=== PATIENT | female | born 1965 | race Caucasian/White ===

== ENCOUNTER 2018-12-03 01:32 | Inpatient (IN) | payer BC ==
[2018-12-03 02:35] LABS: ABSOLUTE LYMPHOCYTES (AUTO) 1.5 10^3/uL (0.5-4.7); ABSOLUTE MONOCYTES (AUTO) 0.9 10^3/uL (0.1-1.4); ABSOLUTE NEUT (AUTO) 8.2 10^3/uL (1.7-8.2); BASOPHILS % (AUTO) 0.4 % (0-2); EOSINOPHILS % (AUTO) 0.2 % (0-6); HEMATOCRIT 46.8 % (36.0-47.0); HEMOGLOBIN 15.9 g/dL (12.0-15.5); LYMPHOCYTES % (AUTO) 13.8 % (13-45); MEAN CORPUSCULAR HEMOGLOBIN 31.5 pg (27.0-33.4); MEAN CORPUSCULAR VOLUME 93 fl (80-97); MONOCYTES % (AUTO) 8.7 % (3-13); PLATELET COUNT 225 10^3/uL (150-450); RED BLOOD COUNT 5.06 10^6/uL (3.72-5.28); SEGMENTED NEUTROPHILS % (AUTO) 76.9 % (42-78); TOTAL CELLS COUNTED % (AUTO) 100 %; WHITE BLOOD COUNT 10.7 10^3/uL (4.0-10.5)
[2018-12-03 02:49] LABS: ALBUMIN 4.4 g/dL (3.5-5.0); ALKALINE PHOSPHATASE 110 U/L (38-126); ANION GAP 9 (5-19); ASPARTATE AMINO TRANSFERASE 18 U/L (14-36); BILIRUBIN,DIRECT 0.1 mg/dL (0.0-0.4); BILIRUBIN,TOTAL 0.6 mg/dL (0.2-1.3); BLOOD UREA NITROGEN 10 mg/dL (7-20); CALCIUM 10.2 mg/dL (8.4-10.2); CARBON DIOXIDE 27 mmol/L (22-30); CHLORIDE 103 mmol/L (98-107); GLUCOSE 135 mg/dL (75-110); POTASSIUM 4.2 mmol/L (3.6-5.0); TOTAL PROTEIN 7.6 g/dL (6.3-8.2)
[2018-12-03] MEDS ORDERED: HYDROMORPHONE HCL INJ/PF 2 MG/ML AMPULE IV ONE ×2 (03:37→06:04)
[2018-12-03] MEDS ORDERED: NORMAL SALINE 1000 ML 1,000 ML IV ONE (03:38)
--- NOTE | 2018-12-03 03:50 | ER Document Report ---
ED General - General Chief Complaint: Lower Abdominal Pain Stated Complaint: ABDOMINAL PAIN Time Seen by Provider: 12/03/18 03:20 Mode of Arrival: Medic Information source: Patient TRAVEL OUTSIDE OF THE [place] IN LAST 30 DAYS: No - HPI Patient complains to provider of: Right lower quadrant abdominal pain Onset: Yesterday - Symptoms started at 1100 hrs. yesterday Onset/Duration: Sudden Quality of pain: Sharp Severity: Severe Context: Patient states she noted onset of abdominal pain and a bandlike distribution in her lower abdomen that came on suddenly around 1100 hrs. yesterday. Patient states she has not had anything to eat since 1100 hrs. yesterday. Patient is complaining of pain that has localized to her right lower quadrant. She is also complaining of worsening of abdominal pain with any type of movement, including moving from a lying position to a sitting or standing position. Patient states that even slight movement of her legs seems to aggravate her abdominal pain. Patient states her nausea is somewhat improved since receiving IV Zofran by rescue in route. Patient states that she is status post tubal ligation and denies the possibility of being . Patient denies fever, chills. Associated symptoms: Nausea, Vomiting Exacerbated by: Movement Relieved by: Remaining still Similar symptoms previously: No Notes: Patient denies prior history of other abdominal surgeries other than tubal ligation. - Related Data Allergies/Adverse Reactions: No Known Allergies Allergy (Verified 12/03/18 02:33) Past Medical History - General Information source: Patient - Social History Smoking Status: Current Every Day Smoker Lives with: Family Family History: Reviewed & Not Pertinent Patient has suicidal ideation: No Patient has homicidal ideation: No Traumatic Medical History: Reports: None Infectious Medical History: Reports: None Surgical Hx: Other Past Surgical History: Reports: Hx Tubal Ligation Review of Systems - Review of Systems Constitutional: No symptoms reported EENT: No symptoms reported Cardiovascular: No symptoms reported Respiratory: No symptoms reported Gastrointestinal: Abdominal pain, Nausea, Vomiting Genitourinary: No symptoms reported Female Genitourinary: No symptoms reported Musculoskeletal: No symptoms reported Skin: No symptoms reported Hematologic/Lymphatic: No symptoms reported Neurological/Psychological: No symptoms reported Physical Exam - Vital signs Vitals: Temp Pulse Resp BP Pulse Ox 98.4 F 96 16 138/83 H 99 12/03/18 01:43 12/03/18 01:43 12/03/18 01:43 12/03/18 01:43 12/03/18 01:43 - General General appearance: Other - Patient is awake, appears to be in pain, but not in extremis. In distress: Mild - HEENT Head: Normocephalic, Atraumatic Eyes: Normal Pupils: PERRL - Respiratory Respiratory status: No respiratory distress Chest status: Nontender Breath sounds: Normal Chest palpation: Normal - Cardiovascular Rhythm: Regular Heart sounds: Normal auscultation Murmur: No - Abdominal Distension: No distension Bowel sounds: Hypoactive Tenderness: Spears's sign. No: Rebound Organomegaly: No organomegaly Notes: Patient is tender to palpation in all 4 quadrants. Patient's pain is most significant in her right lower quadrant and very slight palpation of this region elicits a painful response from the patient. Spears sign is positive, positive Rovsing sign, no rebound present. - Extremities General upper extremity: Normal inspection General lower extremity: Normal inspection - Neurological Neuro grossly intact: Yes Cognition: Normal Orientation: AAOx4 [place] Coma Scale Eye Opening: Spontaneous [place] Coma Scale Verbal: Oriented [place] Coma Scale Motor: Obeys Commands [place] Coma Scale Total: 15 - Psychological Associated symptoms: Anxious - Skin Skin Temperature: Warm Skin Moisture: Dry Skin Color: Pale Course - Re-evaluation Re-evalutation: 12/03/18 06:09 Patient has some pain relief with Dilaudid. CT abdomen pelvis significant for acute appendicitis. Findings discussed with at 0550 hours. Requested the patient be given a dose of Cipro and Flagyl IV now. Patient's CT scan results discussed with her. Patient understands diagnosis and necessity for surgical intervention. All questions have been answered. - Vital Signs Vital signs: Temp Pulse Resp BP Pulse Ox 98.4 F 96 16 138/83 H 99 12/03/18 01:43 12/03/18 01:43 12/03/18 01:43 12/03/18 01:43 12/03/18 01:43 - Laboratory Result Diagrams: 12/03/18 02:20 12/03/18 02:20 Laboratory results interpreted by me: 12/03/18 12/03/18 02:20 02:20 WBC 10.7 H Hgb 15.9 H Glucose 135 H - Diagnostic Test Radiology reviewed: Reports reviewed Discharge - Discharge Clinical Impression: Acute appendicitis Condition: Good Disposition: ADMITTED INPATIENT Admitting Provider: dr epps Unit Admitted: Surgical Floor
[2018-12-03] MEDS ORDERED: NEOSTIGMINE METHYLSULFATE 10 MG/10 ML VIAL ONE (05:00)
[2018-12-03] MEDS ORDERED: PHENYLEPHRINE HCL INJ/PF 10 MG/1 ML SDV ONE (05:00)
[2018-12-03] MEDS ORDERED: ONDANSETRON HCL INJ/PF 4 MG/2 ML SDV ONE (05:00)
[2018-12-03] MEDS ORDERED: SUCCINYLCHOLINE CHLORIDE INJ 200 MG/10 ML VIAL ONE (05:00)
[2018-12-03] MEDS ORDERED: GLYCOPYRROLATE 1 MG/5 ML VIAL ONE (05:00)
[2018-12-03] MEDS ORDERED: ROCURONIUM BROMIDE INJ 50 MG/5 ML VIAL IV ONE (05:00)
[2018-12-03] MEDS ORDERED: DEXAMETHASONE SOD PHOSPHATE INJ 4 MG/1 ML VIAL ONE (05:00)
--- NOTE | 2018-12-03 05:32 | RADIOLOGY REPORT (SQ) ---
EXAM DESCRIPTION: CT ABDOMEN PELVIS WITH IV CONTRAST COMPLETED DATE/TME: 12/03/2018 03:39 CLINICAL HISTORY: 53 years Female, right lower quadrant pain, +Spears's sign. CREAT 0.63 Comparison: None. Technique: IV contrast. Coronal and sagittal reformat. This exam was performed according to our departmental dose-optimization program, which includes automated exposure control, adjustment of the mA and/or kV according to patient size and/or use of iterative reconstruction technique. [facility]: Dose Right [facility]: CareDose [facility]: Dose Right [facility]: Teradose 4D [facility]: Thumbtack LIMITATIONS: None Findings: 0.9 cm diameter inflamed fluid-filled appendix with moderate periappendiceal fat inflammation. Atelectasis/scar. Atherosclerotic vascular disease. No ascites. No pneumoperitoneum. No bowel obstruction. No hydronephrosis or hydroureter. No renal/ureteral stone. No gross evidence of gallbladder inflammation, hepatobiliary obstruction, or portal vein defect. No evidence of abdominal aortic aneurysm. No gross evidence of thecal sac/cord or nerve root compression. Inferior thorax, liver, gallbladder, pancreas, spleen, adrenals, renal system, gastrointestinal tract, pelvic organs, lymphatics, vasculature, and musculoskeleton appear otherwise unremarkable. IMPRESSION: Acute appendicitis.
[2018-12-03 06:04] LABS: APPEARANCE,URINE CLEAR; BILIRUBIN,URINE NEGATIVE (NEGATIVE); COLOR,URINE YELLOW; GLUCOSE, URINE NEGATIVE (NEGATIVE); KETONES,URINE NEGATIVE (NEGATIVE); LEUKOCYTE ESTERASE,URINE NEGATIVE (NEGATIVE); NITRITE,URINE NEGATIVE (NEGATIVE); PROTEIN,URINE NEGATIVE (NEGATIVE); URINE SPECIFIC GRAVITY 1.019; UROBILINOGEN,URINE NEGATIVE mg/dL (<2.0)
[2018-12-03] MEDS ORDERED: METRONIDAZOLE RTU 500 MG/NS 100 ML IV ONE (06:06)
--- NOTE | 2018-12-03 06:57 | PDOC H&P ---
History of Present Illness Admission Date/PCP: 12/03/18 06:22 Patient complains of: lower abdominal pain History of Present Illness: BRINDA BENITEZ is a 53 year old female with a 1 day history of dull, nonspecific lower abdominal pain. Began yesterday morning after she awoke from sleeping. It progressed throughout the day, and intensified. It is situated in her right lower quadrant. The pain is now sharp and stabbing. Her pain does not radiate. She rates it 10 out of 10. She reports subjective fevers and chills. She denies melena, hematochezia, hematemesis, diarrhea, constipation. She has experienced nausea, but denies vomiting. Palpation and movement make her pain worse. Narcotic pain medication is the only thing that makes it better. She has never experienced pain like this before. Past Medical History Traumatic Medical History: Reports: None Infectious Medical History: Reports: None Past Surgical History Past Surgical History: Reports: Orthopedic Surgery - knee surgery, Tubal Ligation Social History Lives with: Family Smoking Status: Current Every Day Smoker Family History Family History: Reviewed & Not Pertinent Parental Family History Reviewed: Yes Children Family History Reviewed: Yes Sibling(s) Family History Reviewed.: Yes Medication/Allergy Allergies/Adverse Reactions: No Known Allergies Allergy (Verified 12/03/18 02:33) Review of Systems Constitutional: PRESENT: chills, fever(s). ABSENT: anorexia, fatigue, headache(s), night sweats, weakness Eyes: ABSENT: visual disturbances Ears: ABSENT: hearing changes Nose, Mouth, and Throat: ABSENT: mouth pain, sore throat Cardiovascular: ABSENT: chest pain Respiratory: ABSENT: cough, dyspnea Gastrointestinal: PRESENT: abdominal pain, nausea. ABSENT: bloating, constipation, diarrhea, hematemesis, hematochezia, melena, vomiting Genitourinary: ABSENT: dysuria Musculoskeletal: ABSENT: back pain Integumentary: ABSENT: pruritus, rash Neurological: ABSENT: confusion, convulsions, dizziness Psychiatric: ABSENT: anxiety, depression Endocrine: ABSENT: cold intolerance, heat intolerance Hematologic/Lymphatic: ABSENT: easy bleeding, easy bruising Physical Exam Vital Signs: Temp Pulse Resp BP Pulse Ox 98.4 F 96 16 138/83 H 99 12/03/18 01:43 12/03/18 01:43 12/03/18 01:43 12/03/18 01:43 12/03/18 01:43 Intake & Output 12/01/18 12/02/18 12/03/18 06:59 06:59 06:59 Intake Total 1000 Balance 1000 Weight 75 kg General appearance: PRESENT: cooperative Head exam: PRESENT: atraumatic, normocephalic Eye exam: PRESENT: EOMI, PERRLA. ABSENT: scleral icterus Mouth exam: PRESENT: moist, neck supple Neck exam: ABSENT: meningismus, tenderness, thyromegaly, tracheal deviation Respiratory exam: PRESENT: clear to auscultation miryam, unlabored. ABSENT: chest wall tenderness, tachypnea, wheezes Cardiovascular exam: PRESENT: RRR Pulses: PRESENT: normal radial pulses GI/Abdominal exam: PRESENT: guarding - right lower quadrant, soft, tenderness. ABSENT: distended, firm Rectal exam: PRESENT: deferred Extremities exam: ABSENT: clubbing Musculoskeletal exam: ABSENT: deformity Neurological exam: PRESENT: alert, awake, oriented to person, oriented to place, oriented to time, oriented to situation, CN II-XII grossly intact. ABSENT: motor sensory deficit Psychiatric exam: ABSENT: agitated, anxious, depressed Focused psych exam: ABSENT: delusional Skin exam: ABSENT: cyanosis, erythema, jaundice Results Laboratory Results: 12/03/18 02:20 12/03/18 02:20 12/03/18 12/03/18 12/03/18 02:20 02:20 05:25 WBC 10.7 H RBC 5.06 Hgb 15.9 H Hct 46.8 MCV 93 MCH 31.5 MCHC 34.0 RDW 14.0 Plt Count 225 Seg Neutrophils % 76.9 Sodium 139.1 Potassium 4.2 Chloride 103 Carbon Dioxide 27 Anion Gap 9 BUN 10 Creatinine 0.63 Est GFR ( Amer) > 60 Glucose 135 H Calcium 10.2 Total Bilirubin 0.6 AST 18 Alkaline Phosphatase 110 Total Protein 7.6 Albumin 4.4 Lipase 29.2 Urine Color YELLOW Urine Appearance CLEAR Urine pH 7.0 Ur Specific [place] 1.019 Urine Protein NEGATIVE Urine Glucose (UA) NEGATIVE Urine Ketones NEGATIVE Urine Blood SMALL H Urine Nitrite NEGATIVE Ur Leukocyte Esterase NEGATIVE Urine WBC (Auto) 1 Urine RBC (Auto) 4 Impressions: Abdomen/Pelvis CT 12/03/18 03:39 IMPRESSION: Acute appendicitis. Assessment & Plan - Diagnosis (1) Acute appendicitis Qualifiers: Acute appendicitis type: with localized peritonitis Appendicitis gangrene presence: unspecified whether gangrene present Appendicitis perforation presence: unspecified whether perforation present Appendicitis abscess presence: without abscess Qualified Code(s): K35.30 - Acute appendicitis with localized peritonitis, without perforation or gangrene Is this a current diagnosis for this admission?: Yes - Plan Summary Plan Summary: This is a 53-year-old female with stabbing right lower quadrant pain. She has mild elevation of her white blood cell count. She has a CT scan, that I have reviewed (images and reports). She has thickening of her appendix with periappendiceal stranding. Her history, physical exam, and imaging studies are all consistent with acute appendicitis. I have recommended definitive surgical treatment, in the form of laparoscopic appendectomy. The patient has agreed to this. Risks/benefits discussed, informed consent obtained, and all questions answered.
[2018-12-03] MEDS: KETOROLAC TROMETHAMINE INJ/PF 30 MG/1 ML SDV IV SCH ×3 (07:16→21:35)
[2018-12-03] MEDS ORDERED: CIPROFLOXACIN 400 MG/D5W RTU 400 MG/200 ML RTUPB IV SCH (10:00)
[2018-12-03] MEDS: FAMOTIDINE INJ/PF 20 MG/2 ML SDV IV SCH ×2 (10:00→21:35)
[2018-12-03] MEDS ORDERED: MIDAZOLAM 2 MG/2 ML INJ ONE (10:12)
[2018-12-03] MEDS ORDERED: FENTANYL CITRATE INJ/PF 250 MCG/5 ML AMPULE ONE (10:12)
[2018-12-03] MEDS ORDERED: PROPOFOL INJ 200 MG/20 ML VIAL IV ONE (10:12)
[2018-12-03] MEDS ORDERED: BUPIVACAINE HCL 0.25 % INJ/PF (2.5 MG/1 ML) 30 ML VIAL ONE (10:51)
[2018-12-03] MEDS ORDERED: MORPHINE SULFATE 10 MG/ML INJ IV PRN (11:05)
[2018-12-03] MEDS ORDERED: FENTANYL CITRATE INJ/PF 100 MCG/2 ML AMPUL IV PRN ×3 (11:05)
[2018-12-03] MEDS ORDERED: MEPERIDINE HCL/PF INJ 25 MG/1 ML DISP.SYRIN IV PRN (11:05)
[2018-12-03] MEDS ORDERED: PROMETHAZINE HCL INJ 25 MG/1 ML VIAL IV PRN (11:05)
[2018-12-03] MEDS ORDERED: DIPHENHYDRAMINE HCL 50 MG/ML VIAL IV PRN (11:05)
[2018-12-03] MEDS: MEPERIDINE HCL/PF INJ 25 MG/1 ML DISP.SYRIN ONE ×2 (12:05→12:10)
[2018-12-03] MEDS: METRONIDAZOLE 500 MG/NS RTU 500 MG/100 ML RTUPB IV SCH ×2 (14:00→21:36)
[2018-12-03] MEDS: HYDROCODONE/ACETAMINOPHEN 10-325 MG TABLET PO PRN (21:34)
--- NOTE | 2018-12-03 22:54 | Operative Report ---
Nonrecallable Operative Report DATE OF SURGERY: 12/03/18 PREOPERATIVE DIAGNOSIS: Acute appendicitis POSTOPERATIVE DIAGNOSIS: Acute perforated appendicitis OPERATION: Laparoscopic appendectomy SURGEON: ALEXIS MAIER ANESTHESIA: GA TISSUE REMOVED OR ALTERED: Appendix COMPLICATIONS: None apparent ESTIMATED BLOOD LOSS: 20 cc PROCEDURE: Drains/implants: None. Procedure in detail: After informed consent was obtained, the patient was brought into the operating room and laid in the supine position. The area of the abdomen was prepped and draped in a normal sterile fashion. A supraumbilical incision was created with a 15 blade scalpel. Dissection was carried through the subcutaneous tissue using sharp and blunt dissection. The cicatrix was identified, grasped with a Blair clamp, and retracted upwards. The linea alba fascia was incised sharply, the abdomen was entered sharply. The balloon trocar was inserted, and pneumoperitoneum was achieved. A suprapubic 5 mm trocar was placed, as well as a left lower quadrant 5 mm trocar. This was done under direct laparoscopic visualization. Atraumatic graspers were placed through the 5 mm ports. The cecum was inspected. There was seropurulent fluid surrounding the cecum. The appendix was visualized. The base of the appendix appeared necrotic and perforated. Secondary to this, the mesoappendix was taken down using the harmonic scalpel. The appendix was elevated. The base of the appendix and a portion of the cecum were ligated and divided using the [place] 60 stapler with a blue load. Once this was completed, all the purulent fluid was suctioned from the abdomen. Inspection was then undertaken. No other obvious abnormality could be found throughout the abdomen. The 5 mm trochars were then removed under direct laparoscopic visualization. The supraumbilical trocar was removed, and pneumoperitoneum was relieved. The supraumbilical fascia was closed using 0 Vicryl suture in [id number] fashion. The overlying skin was closed using 4-0 Vicryl Rapide suture in subcuticular fashion. All sponge, instrument, and needle counts were correct x2. Condition: Stable.
[2018-12-03] MEDS: CIPROFLOXACIN 400 MG/D5W RTU 400 MG/200 ML RTUPB IV SCH (22:57)
[2018-12-04] MEDS: KETOROLAC TROMETHAMINE INJ/PF 30 MG/1 ML SDV IV SCH ×3 (05:38→22:29)
[2018-12-04] MEDS: METRONIDAZOLE 500 MG/NS RTU 500 MG/100 ML RTUPB IV SCH ×3 (05:38→22:30)
[2018-12-04] MEDS: DEXTROSE 5%-LACTATED RINGERS 1,000 ML IV PRN ×2 (05:44→18:27)
[2018-12-04] MEDS ORDERED: INFLUENZA QUAD (6MOS+) 2019-20 VAC 0.5 ML SYR IM ONE (08:00)
[2018-12-04 08:37] LABS: ABSOLUTE MONOCYTES (AUTO) 0.4 10^3/uL (0.1-1.4); ABSOLUTE NEUT (AUTO) 7.3 10^3/uL (1.7-8.2); BASOPHILS % (AUTO) 0.5 % (0-2); EOSINOPHILS % (AUTO) 0.5 % (0-6); HEMATOCRIT 35.3 % (36.0-47.0); MEAN CORPUSCULAR HGB CONC 34.6 g/dL (32.0-36.0); MEAN CORPUSCULAR VOLUME 93 fl (80-97); MONOCYTES % (AUTO) 4.6 % (3-13); PLATELET COUNT 143 10^3/uL (150-450); RED BLOOD COUNT 3.82 10^6/uL (3.72-5.28); RED CELL DISTRIBUTION WIDTH 14.1 % (11.5-14.0); SEGMENTED NEUTROPHILS % (AUTO) 83.4 % (42-78); TOTAL CELLS COUNTED % (AUTO) 100 %; WHITE BLOOD COUNT 8.8 10^3/uL (4.0-10.5)
[2018-12-04 08:53] LABS: HEMOGLOBIN 12.2 g/dL (12.0-15.5)
--- NOTE | 2018-12-04 09:18 | PDOC PROGRESS REPORT ---
Subjective Progress Note for:: 12/04/18 Subjective:: feels ok still with some llq pain from incision Reason For Visit: ACUTE APPENDICITIS Physical Exam Vital Signs: Temp Pulse Resp BP Pulse Ox 98.3 F 92 17 119/64 91 L 12/04/18 08:03 12/04/18 08:03 12/04/18 08:03 12/04/18 08:03 12/04/18 08:03 Intake & Output 12/03/18 12/04/18 12/05/18 06:59 06:59 06:59 Intake Total 1000 2380 Output Total 10 Balance 1000 2370 Weight 75 kg 76.5 kg General appearance: PRESENT: no acute distress Head exam: PRESENT: atraumatic Eye exam: PRESENT: EOMI Ear exam: PRESENT: TM's normal bilaterally Mouth exam: PRESENT: moist Neck exam: PRESENT: full ROM Respiratory exam: PRESENT: clear to auscultation miryam Cardiovascular exam: PRESENT: RRR Pulses: PRESENT: normal radial pulses, normal femoral pulses GI/Abdominal exam: PRESENT: soft Rectal exam: PRESENT: deferred Extremities exam: PRESENT: full ROM Musculoskeletal exam: PRESENT: full ROM Neurological exam: PRESENT: alert, awake, oriented to person, oriented to place Psychiatric exam: PRESENT: appropriate affect Skin exam: PRESENT: dry Results Laboratory Results: 12/04/18 08:14 12/03/18 02:20 12/04/18 08:14 WBC 8.8 RBC 3.82 Hgb 12.2 D Hct 35.3 L MCV 93 MCH 32.0 MCHC 34.6 RDW 14.1 H Plt Count 143 L Seg Neutrophils % 83.4 H Impressions: Abdomen/Pelvis CT 12/03/18 03:39 IMPRESSION: Acute appendicitis. Assessment & Plan - Time Time Spent with patient: 25-34 minutes - Plan Summary Plan Summary: pod 1 s/p perforated appendiciits doing ok no flatus as yet started on a full liquid diet will cont to observe home when return of bowel function cont iv abx and full liqluids for now.
[2018-12-04] MEDS: FAMOTIDINE INJ/PF 20 MG/2 ML SDV IV SCH ×2 (10:28→22:28)
[2018-12-04] MEDS: CIPROFLOXACIN 400 MG/D5W RTU 400 MG/200 ML RTUPB IV SCH ×2 (10:28→22:30)
[2018-12-04] MEDS: HYDROCODONE/ACETAMINOPHEN 10-325 MG TABLET PO PRN ×2 (10:35→18:21)
[2018-12-04] MEDS: ONDANSETRON HCL INJ/PF 4 MG/2 ML SDV IV PRN (22:28)
[2018-12-04] MEDS: MORPHINE SULFATE 10 MG/ML INJ IV PRN (22:28)
[2018-12-05] MEDS: HYDROCODONE/ACETAMINOPHEN 10-325 MG TABLET PO PRN ×4 (02:23→20:45)
[2018-12-05] MEDS: MORPHINE SULFATE 10 MG/ML INJ IV PRN ×2 (04:58→20:47)
[2018-12-05] MEDS: METRONIDAZOLE 500 MG/NS RTU 500 MG/100 ML RTUPB IV SCH ×3 (05:49→22:02)
[2018-12-05] MEDS: KETOROLAC TROMETHAMINE INJ/PF 30 MG/1 ML SDV IV SCH ×3 (05:50→22:03)
[2018-12-05] MEDS: DEXTROSE 5%-LACTATED RINGERS 1,000 ML IV PRN ×2 (08:34→13:39)
[2018-12-05] MEDS: FAMOTIDINE INJ/PF 20 MG/2 ML SDV IV SCH ×2 (09:28→22:02)
[2018-12-05] MEDS: CIPROFLOXACIN 400 MG/D5W RTU 400 MG/200 ML RTUPB IV SCH ×2 (09:29→22:02)
--- NOTE | 2018-12-05 19:21 | PDOC PROGRESS REPORT ---
Subjective Progress Note for:: 12/05/18 Subjective:: mild abdominal pains. No N/V No flatus yet Reason For Visit: ACUTE APPENDICITIS, S/P APPENDECTOMY Physical Exam Vital Signs: Temp Pulse Resp BP Pulse Ox 98.1 F 104 H 18 151/82 H 92 12/05/18 16:00 12/05/18 16:00 12/05/18 16:00 12/05/18 16:00 12/05/18 16:00 Intake & Output 12/04/18 12/05/18 12/06/18 06:59 06:59 06:59 Intake Total 2380 3926 2529 Output Total 10 Balance 2370 3926 2529 Weight 76.5 kg 76.5 kg Exam: abdomen is soft with mild diffuse tenderness. Results Laboratory Results: 12/04/18 08:14 12/03/18 02:20 Impressions: Abdomen/Pelvis CT 12/03/18 03:39 IMPRESSION: Acute appendicitis. Assessment & Plan - Diagnosis (1) Perforated appendicitis Is this a current diagnosis for this admission?: Yes - Time Time Spent with patient: 15-24 minutes - Inpatient Certification Medical Necessity: Need For IV Fluids, Need for IV Antibiotics - Plan Summary Plan Summary: POD #2 Continue full liquids until passes flatus Continue IV antibiotics
[2018-12-06] MEDS: ONDANSETRON HCL INJ/PF 4 MG/2 ML SDV IV PRN (01:25)
[2018-12-06] MEDS: MORPHINE SULFATE 10 MG/ML INJ IV PRN (01:25)
[2018-12-06] MEDS: KETOROLAC TROMETHAMINE INJ/PF 30 MG/1 ML SDV IV SCH ×3 (06:44→23:23)
[2018-12-06] MEDS: METRONIDAZOLE 500 MG/NS RTU 500 MG/100 ML RTUPB IV SCH ×3 (06:44→23:22)
[2018-12-06] MEDS: HYDROCODONE/ACETAMINOPHEN 10-325 MG TABLET PO PRN ×2 (08:04→18:26)
[2018-12-06] MEDS: FAMOTIDINE INJ/PF 20 MG/2 ML SDV IV SCH ×2 (09:32→23:23)
[2018-12-06] MEDS: CIPROFLOXACIN 400 MG/D5W RTU 400 MG/200 ML RTUPB IV SCH ×2 (09:34→23:21)
--- NOTE | 2018-12-06 15:55 | RADIOLOGY REPORT (SQ) ---
EXAM DESCRIPTION: CHEST SINGLE VIEW COMPLETED DATE/TIME: 12/06/2018 3:47 pm REASON FOR STUDY: shortness of breath COMPARISON: None. EXAM PARAMETERS: NUMBER OF VIEWS: One view. TECHNIQUE: Single frontal radiographic view of the chest acquired. RADIATION DOSE: NA LIMITATIONS: None. FINDINGS: LUNGS AND PLEURA: Low lung volumes. Scatter linear densities in the lung bases. No lobar infiltrates, masses or pneumothorax. No pleural effusion. MEDIASTINUM AND HILAR STRUCTURES: No masses. Contour normal. HEART AND VASCULAR STRUCTURES: Heart normal in size. Normal vasculature. BONES: No acute findings. HARDWARE: None in the chest. OTHER: No other significant finding. IMPRESSION: MILD BASILAR ATELECTASIS/ SCARRING. NO ACUTE RADIOGRAPHIC FINDING IN THE CHEST. TECHNICAL DOCUMENTATION: JOB ID: [id number] [employer]- All Rights Reserved Reading location - IP/workstation name: [email or web address]
[2018-12-07] MEDS: HYDROCODONE/ACETAMINOPHEN 10-325 MG TABLET PO PRN (05:36)
[2018-12-07] MEDS: METRONIDAZOLE 500 MG/NS RTU 500 MG/100 ML RTUPB IV SCH (06:46)
[2018-12-07] MEDS: KETOROLAC TROMETHAMINE INJ/PF 30 MG/1 ML SDV IV SCH (06:52)
[2018-12-07 08:58] VITALS: BP 126/72
== END 2018-12-07 09:45 | disposition home or self-care (01) | DRG 340 ==
LOC: ER 01:32 → EH 06:22 → OBSVTOIN 06:22 → INTOOBSV 06:22 → 4N 07:46 → OBSVTOIN 12-05 15:42
PROVIDERS: ATTEND Surgery
PROC: 0DTJ4ZZ Resection of Appendix, Percutaneous Endoscopic Approach (ICD-10-PCS; principal; 2018-12-03 10:30)
PROC: 3E02340 Introduction of Influenza Vaccine into Muscle, Percutaneous Approach (ICD-10-PCS; 2018-12-07)
DX: K35.32 Acute appendicitis with perforation, localized peritonitis, and gangrene, without abscess (principal); F17.200 Nicotine dependence, unspecified, uncomplicated; Z23 Encounter for immunization
CPT/HCPCS: 36415; 51701; 71045; 74177; 80053; 81001; 81025; 83690; 840; 85025; 87040; 88304; 90686; 96361; 96374; 99285; G0378; J0330; J0744; J1100; J1170; J1885; J2175; J2250; J2270; J2370; J2405; J2704; J2710; J3010; J3490; J7030; J7121; S0028